=== PATIENT | male | born 1965 | race Caucasian/White ===

== ENCOUNTER → 2019-07-22 09:29 | Outpatient (CLI) | payer OTHER, SELFPAY ==
[2019-07-22 09:59] LABS: Add Manual Diff / Slide Review NO; Basophils Absolute Auto 100 /uL (0-100); Basophils Percent Auto 0.9 % (0-2); Eosinophils Absolute Auto 400 /uL (0-450); Eosinophils Percent Auto 6.5 % (2-4); Hematocrit 43.7 % (41-53); Hemoglobin 15.7 g/dL (13.5-17.5); Lymphocytes Absolute Auto 2200 /uL (1100-4500); Lymphocytes Percent Auto 36.9 % (25-40); Mean Corpuscular Hemoglobin 30.3 PG (26-34); Mean Corpuscular Volume 84.2 fL (80-100); Monocytes Absolute Auto 600 /uL (0-900); Neutrophils Absolute Auto 2700 /uL (1500-7000); Neutrophils Percent Auto 45.7 % (50-75); Platelet Count 185 X10^3/uL (150-400); Red Blood Cell Count 5.19 X10^6/uL (4.5-5.9); Red Cell Distribution Width 13.8 % (11.6-14.8); White Blood Cell Count 5.9 X10^3/uL (4.5-11.0)
[2019-07-22 10:38] LABS: Alanine Aminotransferase 92 IU/L (<50); Albumin 4.4 g/dL (3.5-5.0); Albumin Globulin Ratio 1.5 (1.0-2.8); Alkaline Phosphatase 77 U/L (38-126); Aspartate Aminotransferase 78 IU/L (17-59); BUN Creatinine Ratio 18.9 (6-22); Bilirubin Total 1.2 mg/dL (0.2-1.3); Blood Urea Nitrogen 17 mg/dL (9-20); Calcium 9.6 mg/dL (8.4-10.2); Carbon Dioxide 27 mmol/L (22-32); Chloride 100 mmol/L (98-107); Cholesterol 265 mg/dL (140-199); Estimated Glomerular Filt Rate > 60.0 mL/min (>60); Glucose 198 mg/dL (70-100); HDL Cholesterol 53 mg/dL (40-60); HEMOLYSIS < 15 (0-50); LDL Cholesterol Calculated 170 mg/dL (<100); Sodium 137 mmol/L (137-145); Total Protein 7.4 g/dL (6.3-8.2); Triglycerides 209 mg/dL (35-150)
[2019-07-22 10:53] LABS: Vitamin D 25 Hydroxy (D3) 25.8 ng/mL (30.0-100.0)
[2019-07-22 11:10] LABS: TSH w/ Reflex to FT4 2.02 uIU/mL (0.47-4.68)
[2019-07-25 22:23] LABS: Testosterone Free 50.3 pg/mL (35.0-155.0); Testosterone Total 266 ng/dL (250-1100)
== END ==
PROVIDERS: Visit Provider Family Medicine
DX: E78.5 Hyperlipidemia, unspecified (principal); I10 Essential (primary) hypertension; R79.89 Other specified abnormal findings of blood chemistry
CPT/HCPCS: 36415; 80053; 80061; 82306; 84402; 84403; 84443; 85025

== ENCOUNTER → 2019-07-27 17:15 | Outpatient (CLI) | payer OTHER, SELFPAY ==
[2019-07-27 18:06] LABS: Hemoglobin A1C% w Est Avg Glu 7.2 % (4.0-6.0)
== END ==
PROVIDERS: Visit Provider Family Medicine
DX: R73.9 Hyperglycemia, unspecified (principal)
CPT/HCPCS: 36415; 83036

== ENCOUNTER → 2020-08-31 08:54 | Outpatient (CLI) | payer OTHER, SELFPAY ==
[2020-08-31 09:52] LABS: Add Manual Diff / Slide Review NO; Basophils Absolute Auto 0 /uL (0-100); Basophils Percent Auto 0.9 % (0-2); Eosinophils Absolute Auto 200 /uL (0-450); Eosinophils Percent Auto 3.5 % (2-4); Hematocrit 43.7 % (41-53); Hemoglobin 15.2 g/dL (13.5-17.5); Lymphocytes Absolute Auto 1800 /uL (1100-4500); Lymphocytes Percent Auto 33.6 % (25-40); Mean Corpuscular HGB Conc 34.7 % (30-36); Mean Corpuscular Hemoglobin 30.8 PG (26-34); Mean Corpuscular Volume 88.7 fL (80-100); Monocytes Absolute Auto 500 /uL (0-900); Monocytes Percent Auto 9.4 % (3-14); Neutrophils Absolute Auto 2800 /uL (1500-7000); Neutrophils Percent Auto 52.6 % (50-75); Platelet Count 198 X10^3/uL (150-400); Red Blood Cell Count 4.93 X10^6/uL (4.5-5.9); Red Cell Distribution Width 13.6 % (11.6-14.8); White Blood Cell Count 5.3 X10^3/uL (4.5-11.0)
[2020-08-31 10:09] LABS: Alanine Aminotransferase 61 IU/L (<50); Albumin 4.5 g/dL (3.5-5.0); Albumin Globulin Ratio 1.5 (1.0-2.8); Alkaline Phosphatase 74 U/L (38-126); Aspartate Aminotransferase 48 IU/L (17-59); BUN Creatinine Ratio 14.3 (6-22); Bilirubin Total 0.6 mg/dL (0.2-1.3); Blood Urea Nitrogen 12 mg/dL (9-20); Calcium 9.3 mg/dL (8.4-10.2); Carbon Dioxide 29 mmol/L (22-32); Chloride 105 mmol/L (98-107); Cholesterol 221 mg/dL (140-199); Estimated Glomerular Filt Rate > 60.0 mL/min (>60); Glucose 142 mg/dL (70-100); HDL Cholesterol 78 mg/dL (40-60); HEMOLYSIS 25 (0-50); LDL Cholesterol Calculated 114 mg/dL (<100); Potassium 3.8 mmol/L (3.4-5.1); Sodium 140 mmol/L (137-145); Total Protein 7.5 g/dL (6.3-8.2); Triglycerides 143 mg/dL (35-150)
[2020-08-31 10:18] LABS: Hemoglobin A1C% w Est Avg Glu 5.8 % (4.0-6.0)
== END ==
PROVIDERS: PCP Family Medicine; Referring Provider Family Medicine; Visit Provider Family Medicine
DX: E11.9 Type 2 diabetes mellitus without complications (principal); E78.5 Hyperlipidemia, unspecified; I10 Essential (primary) hypertension
CPT/HCPCS: 36415; 80053; 80061; 83036; 85025

== ENCOUNTER 2023-05-28 13:36 | Emergency (ER) | payer OTHER, SELFPAY ==
[2023-05-28 14:04] VITALS: BP 165/105; PULSE 70; RESP 16; TEMP 36.3; O2SAT 97; BMI 32.3
[2023-05-28 14:10] VITALS: BP 185/98
[2023-05-28 14:36] VITALS: BP 160/99; PULSE 67; O2SAT 96
[2023-05-28 15:00] VITALS: BP 150/94; PULSE 68; RESP 19; O2SAT 96
--- NOTE | 2023-05-28 15:12 | ED_ITS ---
HPI - General Adult General Chief complaint: Hypertension Stated complaint: high BP Time Seen by Provider: 05/28/23 14:46 Source: patient Mode of arrival: Ambulatory History of Present Illness HPI narrative: 57-year-old male with history of hypertension presents for hypertension. He states that he is getting back into taking care of his health and was restarted on blood pressure medications by his primary care physician 2 weeks ago. He took his blood pressure for the 1st time today and noticed that it was regularly 150s over 100s. He went to [facility] where the blood pressure cuff there confirmed his readings. He called his primary care physician's office to see what he should do next and they referred him to the emergency department. Patient states that he has been in his usual state of health, he denies blurred vision, chest pain, shortness of breath, leg swelling, any other complaints at this time. He has follow up in 5 days with his primary care physician for further monitoring of his blood pressure. Related Data Home Medications Medication Instructions Recorded Confirmed multivitamin (Multiple Vitamins 1 tab PO QDAY ##0 06/04/17 01/11/22 tablet) Previous Rx's Medication Instructions Recorded propranolol 10 mg tablet See Rx Instructions .Route 12/19/20 .COMPLEX #60 tabs sertraline 25 mg tablet 50 mg (2 x 25 mg) PO DAILY #60 tabs 03/08/21 losartan 100 See Rx Instructions .Route 07/30/21 mg-hydrochlorothiazide 12.5 mg .COMPLEX #90 tabs tablet Allergies Allergy/AdvReac Type Severity Reaction Status Date / Time No Known Drug Allergies Allergy Verified 05/28/23 14:08 Review of Systems Review of Systems Narrative: CONSTITUTIONAL- Denies: fever, chills, fatigue HEENT- Denies: sore throat, nosebleed, vision changes RESPIRATORY- Denies: shortness of breath, cough, wheezing CARDIAC- Denies: chest pain, edema, orthopnea GI- Denies: abdominal pain, nausea, vomiting, constipation, diarrhea - Denies: frequency, dysuria, hematuria, flank pain MSK- Denies: extremity pain, extremity swelling, joint pain, joint swelling SKIN- Denies: rash, itching, burn, swelling NEUROLOGICAL- Denies: headache, numbness, weakness, dizziness PSYCHIATRIC- Denies: anxiety, depression, suicidal ideation, homicidal ideation Patient History Medical History (Updated 05/28/23 @ 15:13 by Sis Kraus MD) Abdominal pain Situational mixed anxiety and depressive disorder Generalized anxiety disorder Anxiety about health Diabetes Obesity (BMI 30-39.9) Snoring Fatigue Elevated fasting blood sugar MONY (obstructive sleep apnea) Low testosterone level in male Surgical History History of orthopedic surgery Family History Father Stroke Alcohol abuse Mother Depression Family/Other Loud snoring Hypertension Diabetes mellitus Heart disease Social History Smoking Status: Current every day smoker Smoking Status: Current every day smoker tobacco type: vaping Substance Use Type: does not use Exam Initial Vital Signs Initial Vital Signs: Vital Signs Temperature 97.3 F L 05/28/23 14:04 Pulse Rate 70 05/28/23 14:04 Respiratory Rate 16 05/28/23 14:04 Blood Pressure 165/105 H 05/28/23 14:04 Pulse Oximetry 97 05/28/23 14:04 Oxygen Delivery Method Room Air 05/28/23 14:04 Const: Awake, alert, no acute distress, nontoxic appearing Eyes: PERRL, EOMI, conjunctiva normal ENT: Atraumatic, dentition normal, mucous membranes moist Cardiac: regular rate, regular rhythm RESP: unlabored, clear bilaterally, no wheezing GI: Atraumatic, soft, nontender, nondistended, no rebound, no guarding MSK: Atraumatic, full range of motion, pulses equal Skin: Warm, Dry, intact, no rashes Neuro: AO x3, CN II-XII grossly intact, moves all extremities Psych: affect normal, mood normal, not suicidal, not homicidal Course Course Course Narrative: Asymptomatic hypertension. Patient offered blood work if he is concerned for possible end-organ damage, however he states that he is blood work coming up later this week for his primary care follow up appointment and would prefer to defer lab work at this time. Patient was given signs and symptoms of hypertensive emergency and given strict ED return precautions. He is currently only taking 25 mg of losartan and he was instructed to increase the dose to 50 mg daily with a maximum of 100 mg daily. Vital Signs Vital signs: Vital Signs - 8 hr 05/28/23 14:04 05/28/23 14:10 05/28/23 14:36 Temperature 97.3 F L Pulse Rate 70 67 Respiratory Rate 16 Blood Pressure 165/105 H 185/98 H Pulse Oximetry 97 96 Oxygen Delivery Method Room Air 05/28/23 14:36 05/28/23 15:00 05/28/23 15:00 Temperature Pulse Rate 68 Respiratory Rate 19 Blood Pressure 160/99 H 150/94 H Pulse Oximetry 96 Oxygen Delivery Method Discharge Plan Departure Patient Disposition: Home Clinical Impression: Hypertension Instructions: DI for High Blood Pressure Prescriptions: No Action multivitamin [Multiple Vitamins] 1 EACH tablet 1 tab PO QDAY Qty: 0 propranolol 10 mg tablet See Rx Instructions .ROUTE .COMPLEX Qty: 60 0RF Dose Instruction: take 1 tablet by mouth twice a day Rx Instructions: take 1 tablet by mouth twice a day losartan-hydrochlorothiazide 100-12.5 mg tablet See Rx Instructions .ROUTE .COMPLEX Qty: 90 3RF Dose Instruction: take 1 tablet by mouth DAILY Rx Instructions: take 1 tablet by mouth DAILY sertraline 25 mg tablet 50 mg PO DAILY Qty: 60 0RF Rx Instructions: start with 1 tab daily for two weeks then increase if needed Referrals: Marie Lion PA-C [Primary Care Provider] - Stand Alone Forms: Patient Portal/API
== END 2023-05-28 15:22 | disposition home or self-care (01) ==
PROVIDERS: Emergency Provider Emergency Medicine; PCP Physician Assistant
DX: I10 Essential (primary) hypertension (principal); F17.290 Nicotine dependence, other tobacco product, uncomplicated
CPT/HCPCS: 99281; 99282

== ENCOUNTER → 2024-03-24 08:46 | Outpatient (CLI) | payer OTHER, SELFPAY ==
--- NOTE | 2024-03-24 09:01 | DIAB.MNT ---
Initial Diabetes Medical Nutrition Therapy Assessment Name: Bert Galindo (Master) Date: 03/24/24 Time: 9- Dx: Type II Diabetes Provider: Ayad Master presents for initial Dm visit. Paternal grandfather with Hx of Dm. Younger brother wears a CGM. Steady increase in wt over last 15 years. Reports h/o ETOHism. Rehab x2. Sober over the last 2 years. Reports feeling somewhat disappointed that his d/c of ETOH has not made much impact on his HTN. Feels he has increased sugar intake since quitting ETOH. Endorses wanting to reduce sugar and nicotine use. Would like to discuss CGm with PCP. Frequent eating out, 7x per week. Diet recall: 8-9a: nothing or bowl of granola or raisin bran or eggs, king, ww bread 2p: eating out pizza x4 slices or sandwich or burger with fries 7p: eating out similar to 2p or will cook at home steak/steak kabob with veggies or tacos x3 flour tortillas and beans with rice Water 24oz x 2-3, milk 8ozx 4-5, diet coke Anthropometrics: Ht: 5'10 Wt: 230# Physical Activity: wt training with pet trainer 2x per week. Golf 2x per week. Self-Monitoring Blood Glucose: Has meter and supplies. Not checking. Does not like needles. Diabetes Medications: 500mg Metformin XR Pertinent Labs: HgA1c: 7.4% 01/2024 Past Medical History: (Last Updated 01/11/22 @ 12:06 by Pal Henson DO) Abdominal pain Anxiety about health Diabetes Elevated fasting blood sugar Fatigue Generalized anxiety disorder Low testosterone level in male Obesity (BMI 30-39.9) MONY (obstructive sleep apnea) Situational mixed anxiety and depressive disorder Snoring Nutrition Rx: Carbohydrates: Meal:45-60g Snack:15-30g Nutrition Diagnosis: - Excessive CHO intake r/t long period of fasting resulting in over consumption aeb diet recall - Excessive Na intake r/t eating out frequency aeb diet recall - Self monitoring deficit r/t not wanting to prick finger aeb pt report Intervention: This participant was very receptive. Provided appropriate educational handouts. Discussed the following topics: Completed intake assessment. Discussed barriers to care. CGM Sample FSL3 plus Reviewed CGM use and equipment Discussed when to check blood sugars using finger stick Reviewed high and low blood sugar signs/symptoms and treatment options Provided education for self-administration of CGM placement Educated patient on alarm settings Discussed equipment disposal Plate Method, impact of macronutrients on blood sugar, meal timing, carbohydrate counting, pairing macronutrients and spreading out carbohydrates for better blood glucose management Recommended servings for carbohydrates at meals and snacks Heart health nutrition: Sodium and eating out Brainstormed appropriate portions and strategies based on food preferences Created SMART goals for patient self-care and success. Goals: Try 15 day CGM Aim for small snack every morning Split 2p meal in half Eat a 6p for dinner Option for snack or small dessert at 9p Follow-up: [facility]ALLORY follow-up in 2-3 weeks Shanta Newman RDN, MOHAMUD Certified Diabetes Care and Heavy Duty Press Operator P: [phone] Thank you for this referral
== END ==
PROVIDERS: PCP Physician Assistant; Referring Provider Physician Assistant
DX: E11.9 Type 2 diabetes mellitus without complications (principal); Z83.3 Family history of diabetes mellitus; Z79.84 Long term (current) use of oral hypoglycemic drugs; Z71.3 Dietary counseling and surveillance
CPT/HCPCS: 97802

== ENCOUNTER → 2024-04-07 15:54 | Outpatient (CLI) | payer OTHER, SELFPAY ==
--- NOTE | 2024-04-27 16:31 | DIAB.MNTFU ---
Follow-up Diabetes Medical Nutrition Therapy Assessment Name: Bert Galindo (Master) Date: 04/07/24 Time: 405-450p Dx: Type II Diabetes Provider: Ayad Master presents for follow-up Dm visit. Presents with spouse. Reports finding CGM helpful. Would like to seek OTC options. States he would often get alarms for lows in the afternoon and felt fatigue. states she would like for him to try Ozempic for both BG management and wt loss; however seems he might benefit from lifestyle change initially before other medication interventions. He agrees. States he has always eaten very fast due to h/o [employer]. Often feels bloated after eating. has not tried splitting eating out portions, continued frequent eating out. Anthropometrics: Ht: 5'10 Wt: 230# Physical Activity: wt training with industrial trainer 2x per week. Golf 2x per week. Self-Monitoring Blood Glucose: Wore FSL3 since last visit. FBG often >130mg/dl, but at times in goal. Some after meal elevations resulting in 60s mg/dl thereafter. TIR: 0% very high 13% high 86% in rnage 1% low 0% very low avmg/dl GMI: 6.6% variability 26% Diabetes Medications: 500mg Metformin XR Pertinent Labs: HgA1c: 7.4% 01/2024 Past Medical History: (Last Updated 01/11/22 @ 12:06 by Pal Henson DO) Abdominal pain Anxiety about health Diabetes Elevated fasting blood sugar Fatigue Generalized anxiety disorder Low testosterone level in male Obesity (BMI 30-39.9) MONY (obstructive sleep apnea) Situational mixed anxiety and depressive disorder Snoring Nutrition Rx: Carbohydrates: Meal:45-60g Snack:15-30g Nutrition Diagnosis: - Excessive CHO intake r/t long period of fasting resulting in over consumption aeb diet recall- in progress - Excessive Na intake r/t eating out frequency aeb diet recall - in progress - Self monitoring deficit r/t not wanting to prick finger aeb pt report - continued/improved Intervention: This participant was very receptive. Provided appropriate educational handouts. Discussed the following topics: OTC CGM options Medication management: ADA guidelines and options Portion recommendations Impact of eating quickly on fullness/bloat Meal timing Created SMART goals for patient self-care and success. Goals: Try 15 day CGM- met Aim for small snack every morning- 50% met Split 2p meal in half- not met Eat a 6p for dinner- not met Option for snack or small dessert at 9p- not discussed Eat slower- new Work on meal timing- new Split eating out portions- new Follow-up: [facility]ALLORY follow-up in 3-4 weeks Shanta Newman RDN, MOHAMUD Certified Diabetes Care and Sexual Assault Counselor P: [phone] Thank you for this referral
== END ==
PROVIDERS: PCP Physician Assistant; Referring Provider Physician Assistant
DX: E11.9 Type 2 diabetes mellitus without complications (principal); Z71.3 Dietary counseling and surveillance; Z79.84 Long term (current) use of oral hypoglycemic drugs
CPT/HCPCS: 97803

== ENCOUNTER → 2024-06-18 13:14 | Outpatient (CLI) | payer OTHER, SELFPAY ==
--- NOTE | 2024-07-15 17:24 | DIAB.FU ---
Follow-up Diabetes Education Assessment Name: Bert Galindo (Master) Date: 06/18/24 Time: 115-210p Dx: Type II Diabetes Provider: Ayad Master presents for follow-up Dm visit. Reports no change in his diet. Reports difficulty with motivation to make change. States CGM was helpful and wants to see if his insurance will cover. Needs more education on OTC options. States while he was in [place] he was much more active. Diet remains few meals and large portions. Has PCP visit in Jun. Unclear about labs prior to this visit. Physical Activity: wt training with racehorse trainer 2x per week. Golf 2x per week. In [place] recently was attending spin class 4-5x per week x 45-60 min. Self-Monitoring Blood Glucose: Previous TIR: 0% very high 13% high 86% in rnage 1% low 0% very low avmg/dl GMI: 6.6% variability 26% Diabetes Medications: 500mg Metformin XR Pertinent Labs: HgA1c: 7.4% 01/2024 Past Medical History: (Last Updated 01/11/22 @ 12:06 by Pal Henson DO) Abdominal pain Anxiety about health Diabetes Elevated fasting blood sugar Fatigue Generalized anxiety disorder Low testosterone level in male Obesity (BMI 30-39.9) MONY (obstructive sleep apnea) Situational mixed anxiety and depressive disorder Snoring Intervention: This participant was very receptive. Provided appropriate educational handouts. Discussed the following topics: OTC CGM options and resources Stage of change and motivation for health HgA1c goals and frequency Created SMART goals for patient self-care and success. Goals: Eat slower- not met Work on meal timing- not met Split eating out portions- not met Consider OTC CGM- new Check about labs prior to PCP appt- new Follow-up: [facility]ALLORY follow-up in 3-4 weeks Shanta Newman RDN, MOHAMUD Certified Diabetes Care and Oval Or Circular Glass Cutter P: [phone] Thank you for this referral
== END ==
LOC: DIET 13:15
PROVIDERS: PCP Physician Assistant; Referring Provider Physician Assistant
DX: E11.9 Type 2 diabetes mellitus without complications (principal); Z71.3 Dietary counseling and surveillance; Z79.84 Long term (current) use of oral hypoglycemic drugs
CPT/HCPCS: G0108

== ENCOUNTER → 2024-09-01 09:02 | Outpatient (CLI) | payer OTHER, SELFPAY ==
--- NOTE | 2024-09-01 09:07 | DIAB.MNTFU ---
Addendum entered by Shanta Newman 09/01/24 13:51: Nutrition Rx: Carbohydrates: Meal:45-60g Snack:15-30g Nutrition Diagnosis: - Excessive CHO intake r/t long period of fasting resulting in over consumption aeb diet recall- in progress/improved - Excessive Na intake r/t eating out frequency aeb diet recall - in progress/improved - Self monitoring deficit r/t not wanting to prick finger and not wearing CGM aeb pt report - in progress Original Note: Follow-up Diabetes Medical Nutrition Therapy Assessment Name: Bert Galindo (Master) Date: 09/01/24 Time: 900-1000 Dx: Type II Diabetes Provider: Ayad Master presents for follow-up Dm visit. Saw PCP. hgA1c increased significantly. Started Mounjaro 5 weeks. Minimal side effects per report. Notices if he eats sweets he gets GI upset, gas, reflux, some diarrhea. Reports an initial wt of 230-235# and this morning was 211#. Has noticed changes in his appetite since starting GLP1. States he has to think about eating due to reduced appetite. When he does eats he is less likely to finish large portions. Tried increased dose of Metformin to 1000mg ER, had severe diarrhea and went back to 500mg. is also on GLP1 therapy. This has helped them eat more at home. Master usually cooks, ie chicken or meat with salads. Physical Activity: [employer] at gym 2x per week. Reports some reduced energy. Unclear of etiology. has reduced coffee intake to 1 from 2-3 servings. Also reduced energy intake in general wtih GLP1. Self-Monitoring Blood Glucose: Was wearing OTC CGM for a while but has to reorder. Recent TIR lower than previously mostly due to hyperglycemia each day >180mg/dl until last four days of this sensor Fe TIR: 1% very high 27% high 72% in rnage 0% low 0% very low avmg/dl GMI: 7.1 % variability 22.5 % Previous TIR: 0% very high 13% high 86% in rnage 1% low 0% very low avmg/dl GMI: 6.6% variability 26% Diabetes Medications: 500mg Metformin XR 5mg Mounjaro Pertinent Labs: HgA1c: 7.4% 01/2024 9.4% or 9.7% 06/2024 reported Past Medical History: (Last Updated 01/11/22 @ 12:06 by Pal Henson DO) Abdominal pain Anxiety about health Diabetes Elevated fasting blood sugar Fatigue Generalized anxiety disorder Low testosterone level in male Obesity (BMI 30-39.9) MONY (obstructive sleep apnea) Situational mixed anxiety and depressive disorder Snoring Intervention: This participant was very receptive. Provided appropriate educational handouts. Discussed the following topics: Meal/snack timing GLP1 action and SE HgA1c and goal Fueling pre workout Created SMART goals for patient self-care and success. Goals: Consider OTC CGM- met Check about labs prior to PCP appt- met Order OTC CGM- new Eat BID consistently- new Try protein shake in the morning +/- fruit- new Follow-up: [facility] MALLORY follow-up in 3-4 weeks Shanta Newman RDN, MOHAMUD Certified Diabetes Care and Marine Fitter P: [phone] Thank you for this referral
== END ==
LOC: DIET 09:02
PROVIDERS: PCP Physician Assistant; Referring Provider Physician Assistant
DX: E11.9 Type 2 diabetes mellitus without complications (principal); Z79.84 Long term (current) use of oral hypoglycemic drugs; Z71.3 Dietary counseling and surveillance; Z79.85 Long-term (current) use of injectable non-insulin antidiabetic drugs
CPT/HCPCS: 97803

== ENCOUNTER → 2024-09-28 08:57 | Outpatient (CLI) | payer OTHER, SELFPAY ==
--- NOTE | 2024-09-28 09:04 | DIAB.MNTFU ---
Follow-up Diabetes Medical Nutrition Therapy Assessment Name: Bert Galindo (Master) Date: 09/28/24 Time: 9-930a Dx: Type II Diabetes Provider: yAad Master presents for follow-up Dm visit. Reports some dizziness when sitting up. This RD is curious about some potential BP changes, given he is on two BP meds and lost 30# since starting GLP1. Encouraged him to discuss with PCP. Continues to eat reduced portions since starting GLP1. Reports overall making better nutrition changes and eating half the portions he use to. Endorses energy level has much improved since last visit. Still keeping coffee intake to 1-2. Eating BID now, sometimes a third time per day. No significant SE with GLP1. Does endorse some queasy feeling the two days after injections, which seems minor. Current dose of GLP1 seems successfully supporting his wt loss goals, though will be good to see BG results. Diet recall: 730-8a: bowl of granola with cup of coffee mid day: snacks-- protein bar 1-2 dinner: protein, salad, +/- one tortilla or a few chips or a sandwich 12oz milk water sf energy drink Anthropometrics: Ht: 5'10 Wt: 201.5# 03/2024: 230# Physical Activity: Recently back from [place], more golf and spin class. Will restart with racehorse trainer at gym 2x per week. Self-Monitoring Blood Glucose: Was wearing OTC CGM for a while but ran out of sensors. States he did reorder some time ago, but has not received them. Jul TIR: 1% very high 27% high 72% in rnage 0% low 0% very low avmg/dl GMI: 7.1 % variability 22.5 % Previous TIR: 0% very high 13% high 86% in rnage 1% low 0% very low avmg/dl GMI: 6.6% variability 26% Diabetes Medications: 500mg Metformin XR 5mg Mounjaro Pertinent Labs: HgA1c: 7.4% 01/2024 9.4% or 9.7% 06/2024 reported Past Medical History: (Last Updated 01/11/22 @ 12:06 by Pal Henson DO) Abdominal pain Anxiety about health Diabetes Elevated fasting blood sugar Fatigue Generalized anxiety disorder Low testosterone level in male Obesity (BMI 30-39.9) MONY (obstructive sleep apnea) Situational mixed anxiety and depressive disorder Snoring Nutrition Rx: Carbohydrates: Meal:45-60g Snack:15-30g Nutrition Diagnosis: - Excessive CHO intake r/t long period of fasting resulting in over consumption aeb diet recall- improved - Excessive Na intake r/t eating out frequency aeb diet recall - in progress/improved - Self monitoring deficit r/t not wanting to prick finger and not wearing CGM at this time aeb pt report - in progress Intervention: This participant was very receptive. Provided appropriate educational handouts. Discussed the following topics: Benefits of checking BG Portion changes he has made Fueling his workout Potential for dizziness, bp v bg, encouraged him to chat with PCP further regarding this Created SMART goals for patient self-care and success. Goals: Order OTC CGM- met Eat BID consistently- met Try protein shake in the morning +/- fruit- in progress Troubleshoot CGM order- new Follow-up: [facility] follow-up in 4-6 weeks Shanta Newman RDN, MOHAMUD Certified Diabetes Care and Metal Bending Machine Operator P: [phone] Thank you for this referral
== END ==
PROVIDERS: PCP Physician Assistant; Referring Provider Physician Assistant
DX: E11.9 Type 2 diabetes mellitus without complications (principal); R42 Dizziness and giddiness; Z71.3 Dietary counseling and surveillance; Z79.84 Long term (current) use of oral hypoglycemic drugs
CPT/HCPCS: 97803

== ENCOUNTER → 2024-11-03 08:54 | Outpatient (CLI) | payer OTHER, SELFPAY ==
--- NOTE | 2024-11-03 09:54 | DIAB.MNTFU ---
Follow-up Diabetes Medical Nutrition Therapy Assessment Name: Bert Galindo (Master) Date: 11/03/24 Time: 9-930a Dx: Type II Diabetes Provider: Ayad Thao presents for follow-up Dm visit. Big improvement in hgA1c, 5.5%. Down from >9%. Reports continued exercise and nutrition changes. States he is unclear what weight would be a healthy one for him. States his wt has plateaued while on trips, but then came down a couple pounds to 198# after returning home to usual lifestyle. Dizziness subsided. No change in BP meds at this time. Report bowl of granola at breakfast and endorses in range BG after. Trying to focus on protein, supported by gym marine mammal trainer on this. Endorses some potential strength loss with number of reps when working out. May be r/t some muscle loss associated with his wt loss of 30# over the last 7 months (intentional). Reports wt of 190# when got out of the [place]. 192# just a couple years ago. Anthropometrics: Ht: 5 Wt: 198# reported 10/2024: 230# Physical Activity: marine mammal trainer at gym 2x per week. Self-Monitoring Blood Glucose: Started wearing FSL CGM. Had to scan with FSL2. Did not bring deckhand maintenance today. Plans to use phone for next FSL sensor. Has rx for FSL2. Insurance is covering. Needs maximo download to eliminate scanning. Reports BG of 100-150mg/dl. Jul TIR: 1% very high 27% high 72% in rnage 0% low 0% very low avmg/dl GMI: 7.1 % variability 22.5 % Diabetes Medications: 500mg Metformin XR 5mg Mounjaro Pertinent Labs: HgA1c: 7.4% 01/2024 9.4% or 9.7% 06/2024 reported 5.5% 09/2024 Past Medical History: (Last Updated 01/11/22 @ 12:06 by Pal Henson DO) Abdominal pain Anxiety about health Diabetes Elevated fasting blood sugar Fatigue Generalized anxiety disorder Low testosterone level in male Obesity (BMI 30-39.9) MONY (obstructive sleep apnea) Situational mixed anxiety and depressive disorder Snoring Nutrition Rx: Carbohydrates: Meal:45-60g Snack:15-30g Nutrition Diagnosis: - Self monitoring deficit r/t not wanting to prick finger and not wearing CGM at this time aeb pt report - improved Intervention: This participant was very receptive. Provided appropriate educational handouts. Discussed the following topics: Impact of wt loss on muscle mass Importance of protein and resistance training Weight loss goals: realistic, healthful, and metabolically beneficial goal Language Systems maximo download Created SMART goals for patient self-care and success. Goals: Try protein shake in the morning +/- fruit- d/c Troubleshoot CGM order- met use Language Systems maximo- new Continue to prioritize protein - new Follow-up: [facility] follow-up in 6-8 weeks. Shanta Newman RDN, EMAES Certified Diabetes Care and Division Leader P: [phone] Thank you for this referral
== END ==
LOC: DIET 08:54
PROVIDERS: PCP Physician Assistant
DX: E11.9 Type 2 diabetes mellitus without complications (principal); Z71.3 Dietary counseling and surveillance; Z79.84 Long term (current) use of oral hypoglycemic drugs; Z79.85 Long-term (current) use of injectable non-insulin antidiabetic drugs
CPT/HCPCS: 97803